=== PATIENT | male | born 1945 | race Caucasian/White ===

== ENCOUNTER 2017-02-03 20:01 | Emergency (ER) | payer MEDICARE, OTHER ==
[~2017-02-03] VITALS: Ht 175.3 cm; Wt 88.0 kg
[2017-02-03 20:08] VITALS: BP 184/93; PULSE 87; RESP 20; TEMP 97.5; O2SAT 97
[2017-02-03] MEDS ORDERED: ZOFR4TAB3 SL (20:28)
[2017-02-03] MEDS ORDERED: ULTR50TA5 PO (20:28)
--- NOTE | 2017-02-03 20:29 | PD ---
HPI Chief Complaint: nosebleed Time Seen by Provider: 20:22 Travel History International Travel<30 days: No Contact w/Intl Traveler<30days: No Traveled to known affect area: No History of Present Illness HPI patietn states that right sided nosebleed started last thursday and has been spotty occurring on and off for past 5 days, today's episode started about 2hrs ago and he is still bleeding despite holding pressure. pt has set appt with [facility] ent tomorrow at 2pm already pt has a pmhx of htn, high cholesterol nkda denies surgical hx PFSH Social History Tobacco Use: No Review of Systems Except as stated in HPI: all other systems reviewed are Neg HENT: Positive: Nosebleed Physical Exam Narrative GENERAL: SKIN: Warm and dry. HEAD: Atraumatic. Normocephalic. EYES: Pupils equal and round. No scleral icterus. No injection or drainage. ENT: No nasal bleeding or discharge. Mucous membranes pink and moist....right anterior nasal venous bleeding noted, no post pharynx active bleeding, airway protected without stridor/wheezing NECK: Trachea midline. No JVD. CARDIOVASCULAR: Regular rate and rhythm. RESPIRATORY: No accessory muscle use. Clear to auscultation. Breath sounds equal bilaterally. GASTROINTESTINAL: Abdomen soft, non-tender, nondistended. MUSCULOSKELETAL: Extremities without clubbing, cyanosis, or edema. No obvious deformities. NEUROLOGICAL: Awake and alert. No obvious cranial nerve deficits. Motor grossly within normal limits. Five out of 5 muscle strength in the arms and legs. Normal speech. PSYCHIATRIC: Appropriate mood and affect; insight and judgment normal. Data Data Last Documented VS Vital Signs Date Time Temp Pulse Resp B/P Pulse Ox O2 Delivery O2 Flow Rate FiO2 02/03/17 20:08 97.5 87 20 184/93 97 [facility] Medical Decision Making Medical Screen Exam Complete: Yes Emergency Medical Condition: Yes Medical Record Reviewed: Yes Differential Diagnosis anterior v posterior epistaxis Narrative Course noted to have anterior epistaxis, placed rhinorocket inplace see procedure note Procedures Procedure Narrative prepared right anterior nasal passage with lubricant and placed 7.5cm rhinorocket and inflated with syringe 5ml of air...hemostasis achieved and patient tolerated procedure well. Diagnosis Primary Impression: acute anterior epistaxis s/p nasal packing Additional Instructions: keep your appointment with [facility] ENT tomorrow for further care Scripts Ondansetron Odt (Zofran Odt)4 Mg Tab4 Mg SL Q6HR PRN (Nausea/Vomiting) #12 TAB Prov:Prateek Hendrix MD 02/03/17 Tramadol (Ultram)50 Mg Tab50 Mg PO Q4H PRN (PAIN) #28 TAB Prov:Prateek Hendrix MD 02/03/17 Disposition: 01 DISCHARGE HOME Condition: Stable Prateek Hendrix MD Feb 03, 2017 20:29
[2017-02-03] MEDS ORDERED: PRAV10TA PO (20:35)
[2017-02-03] MEDS ORDERED: BP Med PO (20:35)
[2017-02-03 20:40] VITALS: BP 146/92
[2017-02-03] MEDS ORDERED: traMADol HCL 50 MG TAB PO ONE (21:15)
== END 2017-02-03 21:41 | disposition home or self-care (01) ==
LOC: PHED 20:01
DX: R04.0 Epistaxis (principal)
CPT/HCPCS: 30901